=== PATIENT | female | born 1975 | race African-American/Black ===

== ENCOUNTER 2017-12-27 15:33 | Emergency (ER) | payer OTHER ==
[2017-12-28 06:28] LABS: NEGATIVE OBC STREP NEG; POSITIVE OBC STREP POS
== END 2017-12-27 16:28 | disposition home or self-care (01) ==
LOC: ER 15:33
DX: J02.8 Acute pharyngitis due to other specified organisms (principal); B97.89 Other viral agents as the cause of diseases classified elsewhere; E11.9 Type 2 diabetes mellitus without complications; Z90.49 Acquired absence of other specified parts of digestive tract; Z88.1 Allergy status to other antibiotic agents; Z98.51 Tubal ligation status
CPT/HCPCS: 87070; 87880; 99284